=== PATIENT | male | born 1955 | race Two or more races ===

== ENCOUNTER 2022-10-28 14:38 | Emergency (ER) | payer OTHER ==
[~2022-10-28] VITALS: Ht 170.2 cm; Wt 92.7 kg
[2022-10-28 16:26] VITALS: BP 145/73
== END 2022-10-28 17:40 | disposition home or self-care (01) ==
LOC: ER 14:38
DX: K94.03 Colostomy malfunction (principal)

== ENCOUNTER 2022-11-02 16:51 | Emergency (ER) | payer OTHER ==
[~2022-11-02] VITALS: Ht 170.2 cm; Wt 93.2 kg
[2022-11-02 19:02] VITALS: BP 137/89
== END 2022-11-02 19:11 | disposition home or self-care (01) ==
LOC: ER 16:51
DX: Z43.3 Encounter for attention to colostomy (principal)

== ENCOUNTER 2023-05-29 00:18 | Emergency (ER) | payer OTHER ==
[~2023-05-29] VITALS: Ht 170.2 cm; Wt 96.3 kg
[2023-05-29] MEDS ORDERED: AMOX875T4 PO (02:25)
[2023-05-29] MEDS ORDERED: ACET500T58 PO (02:25)
[2023-05-29] MEDS ORDERED: CIPR1SUS8 OT (02:27)
[2023-05-29] MEDS ORDERED: cefTRIAXone SOD 1,000 MG VL IM ONE (02:30)
[2023-05-29] MEDS ORDERED: ACETAMINOPHEN 325 MG TAB PO ONE (02:30)
[2023-05-29 03:00] VITALS: BP 158/90; PULSE 89; RESP 18; TEMP 98; O2SAT 96
== END 2023-05-29 03:05 | disposition home or self-care (01) ==
LOC: ER 00:20
DX: H60.91 Unspecified otitis externa, right ear (principal); Z79.2 Long term (current) use of antibiotics; Z79.899 Other long term (current) drug therapy
CPT/HCPCS: 96372; 99283; J0696